=== PATIENT | male | born 1965 | race Asian ===

== ENCOUNTER 2016-10-16 18:04 | Emergency (ER) | payer OTHER ==
[~2016-10-16] VITALS: Ht 157.5 cm; Wt 70.8 kg
[2016-10-16 18:30] LABS: ABSOLUTE BASOPHIL COUNT 0 /CUMM (0.0-0.2); ABSOLUTE EOSINOPHIL COUNT 0 /CUMM (0.0-0.7); ABSOLUTE GRANULOCYTE CT 4.6 /CUMM (1.4-6.5); ABSOLUTE LYMPH COUNT 1.2 /CUMM (1.2-3.4); ABSOLUTE MONOCYTE COUNT 0.4 /CUMM (0.10-0.60); BASOPHIL % 0.3 % (0.0-2.0); EOSINOPHIL % 0.2 % (0-5); GRANULOCYTE % 73.1 % (42.2-75.2); HEMATOCRIT 47.1 % (42-52); MEAN CORPUSCULAR HGB 29.3 PG (27.0-31.0); MEAN CORPUSCULAR HGB CONC 32.8 G/DL (33.0-37.0); MEAN CORPUSCULAR VOLUME 89.3 FL (80.0-94.0); MEAN PLATELET VOLUME 7.7 FL (7.4-10.4); PLATELET COUNT 214 /CUMM (130-400); RBC DISTRIBUTION WIDTH 13.2 % (11.5-14.5); RED BLOOD CELL CT 5.28 /CUMM (4.70-6.10); WHITE BLOOD CELL COUNT 6.3 /CUMM (4.8-10.8)
--- NOTE | 2016-10-16 20:00 | ED CARDIAC/CP/PALPITATIONS ---
History of Present Illness General Chief Complaint: General Adult Stated Complaint: HEART PALPS, ACID REFLUX, FEVER Source: patient, family Exam Limitations: no limitations Vital Signs & Intake/Output Vital Signs & Intake/Output Vital Signs Date Time Temp Pulse Resp B/P Pulse O2 O2 Flow FiO2 Ox Delivery Rate 10/16 2121 98.4 80 16 153/99 96 Room Air 10/16 1818 99.0 87 20 148/92 98 Room Air Allergies Coded Allergies: No Known Allergies (10/16/16) Reconcile Medications Zolpidem Tartrate (Ambien) 5 MG TABLET 1 TAB PO QPMP PRN INSOMNIA Triage Note: PT TO ED WITH C/O HEART PALPATATIONS X 2 DAYS Triage Nurses Notes Reviewed? yes Onset: Abrupt Duration: week(s): (1) Timing: recent history Quality/Severity: CRAMPING LEFT CHEST 3-4 DAYS Location: LEFT CHEST Activities at Onset: rest Prior Chest Pain/Card Workup: no prior chest pain Associated Symptoms: CHEST PAIN, INSOMNIA, ANXIETY, PALPITATIONS, ABDOMINAL PAIN HPI: 51 year old male presents to the ER wtih his for chief complaint of insomnia sine last sunday. He reports that he has not slept at all. Chest pain/palpiatations for the past 3-4 days and also lower abdominal pain and difficulty urinating x 3 days. No fever or chills. Reports increased stress at home. No SI/HI. Past History Travel History Traveled to [place] past 21 day No Medical History Any Pertinent Medical History? see below for history Neurological: NONE EENT: NONE Cardiovascular: NONE Respiratory: NONE Gastrointestinal: GERD Hepatic: NONE Renal: NONE Musculoskeletal: NONE Psychiatric: NONE Endocrine: NONE Blood Disorders: NONE Cancer(s): NONE HALL CLEANER/Reproductive: NONE Surgical History Surgical History: none Psychosocial History [facility] is [facility] primary language [facility] Tobacco Use: Never used ETOH Use: denies use Illicit Drug Use: denies illicit drug use Family History Hx Contributory? No Review of Systems Review of Systems Constitutional: Denies: chills, fever, malaise, weakness. EENTM: Reports: no symptoms. Respiratory: Denies: cough, short of breath, sputum production. Cardiovascular: Reports: chest pain, palpitations. GI: Reports: abdominal pain, bloating. Denies: diarrhea, nausea, vomiting. Genitourinary: Reports: dysuria, hesitation. Musculoskeletal: Denies: back pain. Skin: Reports: no symptoms. Neurological/Psychological: Reports: see HPI, ataxia. Hematologic/Endocrine: Denies: bruising, bleeding. Immunologic/Allergic: Denies: splenectomy. All Other Systems: Reviewed and Negative Physical Exam Physical Exam General Appearance: well developed/nourished, alert, awake, anxious, mild distress Head: atraumatic, normal appearance Eyes: Bilateral: normal appearance, PERRL, EOMI. Ears, Nose, Throat: normal pharynx, normal ENT inspection Neck: normal inspection, supple, JVD Respiratory: normal breath sounds, chest non-tender, no respiratory distress Cardiovascular: regular rate/rhythm, normal peripheral pulses Peripheral Pulses: 2+ radial (R), 2+ radial (L) Gastrointestinal: normal bowel sounds, soft, tenderness (MILD LLQ) Back: normal inspection, normal range of motion Extremities: normal inspection, normal capillary refill, normal range of motion, no edema Neurologic/Psych: no motor/sensory deficits, awake, alert, oriented x 3, PLEASANT, SMILING, STATES HE FEELS VERY CLEAR, CAN'T SLEEP Core Measures ACS in differential dx? Yes ASA ordered for poss ACS? Yes-ordered Severe Sepsis Present: No Septic Shock Present: No Progress Differential Diagnosis: AMI, aortic dissection, atrial fibrillation, intracranial hemorrhage, musculoskeletal pain, pneumonia, pneumothorax, PSVT, ANXIETY, HYPERTHYROID, PE Plan of Care: Orders Procedure Date/time Status TROPONIN LEVEL 10/16 2200 Complete EKG 10/16 2199 Active Add-on Test (ER Only) 10/16 2009 Active URINE DRUGS OF ABUSE 10/16 2009 Complete URINALYSIS 10/16 2009 Complete TROPONIN LEVEL 10/16 1821 Complete COMPREHENSIVE METABOLIC PANEL 10/16 1821 Complete CBC WITHOUT DIFFERENTIAL 10/16 1821 Complete EKG 10/16 1805 Active THYROID STIMULATING HORMONE 10/16 180 Complete FREE T4 10/16 180 Complete Laboratory Tests 10/16/16 2202: Troponin I < 0.01 10/16/166: Urine Opiates Screen < 100.00, Methadone Screen < 40, Barbiturate Screen < 60, Ur Phencyclidine Scrn < 6.00, Amphetamines Screen < 100, U Benzodiazepines Scrn < 85, Urine Cocaine Screen < 50, Urine Cannabis Screen < 5.00, Urine Color YEL, Urine Clarity CLEAR, Urine pH 6.5, Ur Specific [place] 1.010, Urine Protein NEG, Urine Ketones NEG, Urine Nitrite NEG, Urine Bilirubin NEG, Urine Urobilinogen 0.2, Ur Leukocyte Esterase NEG, Ur Microscopic SEDIMENT EXAMINED, Urine RBC 1-3, Urine Hemoglobin SMALL H, Urine Glucose NEG 10/16/16 1802: Anion Gap 13, Estimated GFR > 60, BUN/Creatinine Ratio 18.3, Glucose 172 H, Calcium 9.8, Total Bilirubin 1.6 H, AST 54, ALT 72, Alkaline Phosphatase 42, Troponin I < 0.01, Total Protein 7.6, Albumin 4.7, Globulin 2.9, Albumin/ Globulin Ratio 1.6, TSH 1.370, Free T4 1.03, CBC w Diff NO MAN DIFF REQ, RBC 5.28, MCV 89.3, MCH 29.3, RDW 13.2, MPV 7.7, Gran % 73.1, Lymphocytes % 19.7 L, Monocytes % 6.7, Eosinophils % 0.2, Basophils % 0.3, Absolute Granulocytes 4.6, Absolute Lymphocytes 1.2, Absolute Monocytes 0.4, Absolute Eosinophils 0, Absolute Basophils 0, PUBS MCHC 32.8 L 9:21 PM IMAGING NEGATIVE. PATIENT WILL STAY FOR REPEAT TROPONIN/EKG AT 10 PM. REPEAT TROPONIN NEGATIVE. PATIENT MUCH IMPROVED AFTER ATIVAN. (JOSELITO LÓPEZ,IONA) Diagnostic Imaging: Viewed by Me: Radiology Read, CT Scan. Discussed w/RAD: Radiology Read, CT Scan. Radiology Impression: PATIENT: DELANO DUNN PRESENT AGE: 51 PATIENT ACCOUNT NO: [id number] : 65 LOCATION: [facility] ORDERING PHYSICIAN: IONA YEE MD SERVICE DATE: 10/16/16 EXAM TYPE: CAT - CT ABD & PELVIS W IV CONTRAST EXAMINATION: CT ABDOMEN AND PELVIS WITH CONTRAST CLINICAL INFORMATION: Left lower quadrant abdominal pain. Difficulty urinating. COMPARISON: None TECHNIQUE: Multidetector volumetric imaging was performed of the abdomen and pelvis before and after the IV administration of 95 mL of Optiray 320 intravenous contrast. Sagittal and coronal reformatted images were obtained on the technologist's workstation. DLP: 260 mGy-cm FINDINGS: LUNG BASES : The visualized lung bases are unremarkable. LIVER, GALLBLADDER, AND BILIARY TREE: The liver is normal in size, shape, and decreased in attenuation. No focal hepatic lesion or biliary ductal dilatation is present. The gallbladder is unremarkable with no evidence of radiopaque gallstones, gallbladder wall thickening, or obvious pericholecystic inflammatory changes. PANCREAS: Unremarkable. SPLEEN: Unremarkable. ADRENAL GLANDS: Unremarkable. KIDNEYS AND URETERS: The kidneys are normal in size, shape, and attenuation. No hydronephrosis, hydroureter, or calculi seen. No perinephric stranding. BLADDER: Unremarkable. GASTROINTESTINAL TRACT: There is scattered stool seen throughout the colon without distention. The small bowel loops unremarkable. The appendix is normal. ABDOMINAL WALL: No significant hernia is appreciated. LYMPH NODES: Normal. VASCULAR: Unremarkable. PELVIC VISCERA: Unremarkable. OSSEOUS STRUCTURES : Unremarkable. IMPRESSION: No acute intra-abdominal process seen. DICTATED BY: MARLO NORRIS MD DATE/TIME DICTATED:10/16/162045 UNDERCOLLAR MAKER:RENETTA DATE/TIME TRANSCRIBED:10/16/162045 CONFIDENTIAL, DO NOT COPY WITHOUT APPROPRIATE AUTHORIZATION. <Electronically signed in Other Vendor System> SIGNED BY: MARLO NORRIS MD 10/16/162055 CXR Impression: PATIENT: DELANO DUNN PRESENT AGE: 51 PATIENT ACCOUNT NO: [id number] : 65 LOCATION: [facility] ORDERING PHYSICIAN: IONA YEE MD SERVICE DATE: 10/16/16 EXAM TYPE: RAD - XRY-CHEST XRAY , PA AND LATERAL EXAMINATION: XR CHEST CLINICAL INFORMATION: Left-sided chest pain. COMPARISON: None TECHNIQUE: 2 views of the chest were obtained. FINDINGS: No significant abnormality is noted involving the heart, lungs, mediastinum, bony thorax or soft tissues. IMPRESSION: Unremarkable examination. DICTATED BY: SANDIE VALDEZ MD DATE/TIME DICTATED:10/16/162111 UNDERCOLLAR MAKER:BLACK[place]OD DATE/TIME TRANSCRIBED:10/16/162111 CONFIDENTIAL, DO NOT COPY WITHOUT APPROPRIATE AUTHORIZATION. <Electronically signed in Other Vendor System> SIGNED BY: SANDIE VALDEZ MD 10/16/162115 Initial ED EKG: rhythm, DIFFUSE T WAVE INVERSIONS ANTEROLATERAL, INF LEADS Repeat EKG: unchanged Rhythm Strip: normal sinus rhythm Departure Departure Time of Disposition: 2241 Disposition: HOME OR SELF CARE Condition: Stable Clinical Impression Primary Impression: Insomnia Secondary Impressions: Acute electrocardiogram changes Referrals: NAHUM HART MD (PCP/Family) Additional Instructions: Please follow-up with your primary care doctor in the office regarding your symptoms. Take the Ambien only as needed for sleep. Please return to the ER for any changing or worsening symptoms. Please take a copy of the EKGs to your doctor's office. Departure Forms: Customer Survey General Discharge Information Prescriptions: Current Visit Scripts Zolpidem Tartrate (Ambien) 1 TAB PO QPMP PRN INSOMNIA #10 TAB Critical Care Note Critical Care Note Critical Care Time: non-applicable
--- NOTE | 2016-10-16 20:56 | CT SCAN REPORT ---
EXAMINATION: CT ABDOMEN AND PELVIS WITH CONTRAST CLINICAL INFORMATION: Left lower quadrant abdominal pain. Difficulty urinating. COMPARISON: None TECHNIQUE: Multidetector volumetric imaging was performed of the abdomen and pelvis before and after the IV administration of 95 mL of Optiray 320 intravenous contrast. Sagittal and coronal reformatted images were obtained on the technologist's workstation. DLP: 260 mGy-cm FINDINGS: LUNG BASES: The visualized lung bases are unremarkable. LIVER, GALLBLADDER, AND BILIARY TREE: The liver is normal in size, shape, and decreased in attenuation. No focal hepatic lesion or biliary ductal dilatation is present. The gallbladder is unremarkable with no evidence of radiopaque gallstones, gallbladder wall thickening, or obvious pericholecystic inflammatory changes. PANCREAS: Unremarkable. SPLEEN: Unremarkable. ADRENAL GLANDS: Unremarkable. KIDNEYS AND URETERS: The kidneys are normal in size, shape, and attenuation. No hydronephrosis, hydroureter, or calculi seen. No perinephric stranding. BLADDER: Unremarkable. GASTROINTESTINAL TRACT: There is scattered stool seen throughout the colon without distention. The small bowel loops unremarkable. The appendix is normal. ABDOMINAL WALL: No significant hernia is appreciated. LYMPH NODES: Normal. VASCULAR: Unremarkable. PELVIC VISCERA: Unremarkable. OSSEOUS STRUCTURES: Unremarkable. IMPRESSION: No acute intra-abdominal process seen.
--- NOTE | 2016-10-16 21:16 | RADIOLOGY REPORT ---
EXAMINATION: XR CHEST CLINICAL INFORMATION: Left-sided chest pain. COMPARISON: None TECHNIQUE: 2 views of the chest were obtained. FINDINGS: No significant abnormality is noted involving the heart, lungs, mediastinum, bony thorax or soft tissues. IMPRESSION: Unremarkable examination.
[2016-10-16] MEDS ORDERED: AMBIEN5 M1 PO (23:03)
[2016-10-16 23:15] VITALS: BP 144/88
== END 2016-10-16 23:16 ==
LOC: ERH 18:04
PROVIDERS: Emergency Medicine
DX: G47.00 Insomnia, unspecified (principal); R94.31 Abnormal electrocardiogram [ECG] [EKG]; R50.9 Fever, unspecified
CPT/HCPCS: 74177; 80307; 81001; 93005; 93010